=== PATIENT | male | born 1930 | race Caucasian/White ===

== ENCOUNTER 2019-06-01 13:51 | Emergency (ER) | payer OTHER ==
[~2019-06-01] VITALS: Ht 175.3 cm; Wt 90.7 kg
[2019-06-01] MEDS ORDERED: PLAVIX75 MG PO (14:41)
[2019-06-01] MEDS ORDERED: ATENOLOL50 MG (14:41)
[2019-06-01] MEDS ORDERED: FLOMAX0.4 MG PO (14:41)
[2019-06-01 18:06] VITALS: BP 144/91
== END 2019-06-01 14:55 | disposition home or self-care (01) ==
LOC: FSED 13:51
DX: S60.812A Abrasion of left wrist, initial encounter (principal); W18.30XA Fall on same level, unspecified, initial encounter; Y93.E8 Activity, other personal hygiene; Y92.002 Bathroom of unspecified non-institutional (private) residence as the place of occurrence of the external cause; Z79.02 Long term (current) use of antithrombotics/antiplatelets; I10 Essential (primary) hypertension; I48.91 Unspecified atrial fibrillation; E78.5 Hyperlipidemia, unspecified
CPT/HCPCS: 99283